=== PATIENT | male | born 1950 | race Caucasian/White ===

== ENCOUNTER 2017-11-24 11:23 | Inpatient (IN) | payer MEDICARE ==
[~2017-11-24] VITALS: Ht 188 cm; Wt 127.0 kg
[~2017-11-24 11:23] MED LIST: NITROGLYCERIN0.4 MG; OMEPRAZOLE20 M2; OMEPRAZOLE20 M2 PO
[2017-11-24 11:27] VITALS: BP 166/95
[2017-11-24] MEDS ORDERED: CRESTOR20 MG PO (11:32)
[2017-11-24] MEDS ORDERED: MOBIC15 MG PO (11:33)
[2017-11-24] MEDS ORDERED: NORVASC10 MG PO (11:33)
[2017-11-24 12:02] LABS: ABSOLUTE EOSINOPHILS 0.1 thou/uL (0.0-0.7); ABSOLUTE LYMPHOCYTES 1.7 thou/uL (0.8-5.3); ABSOLUTE MONOCYTES 0.5 thou/uL (0.0-1.2); ABSOLUTE NEUTROPHILS 4.4 thou/uL (1.6-8.1); BASOPHILS 0.4 %; EOSINOPHILS 1.4 %; HEMATOCRIT 39.7 % (42.0-52.0); HEMOGLOBIN 13.5 gm/dL (14.0-18.0); LYMPHOCYTES 25.5 %; MCH 29.3 pg (26.0-34.0); MCHC 34.1 g/dL (28.0-37.0); MCV 86.2 fL (80.0-100.0); MONOCYTES 7.9 %; MPV 7.2 fl. (7.2-11.1); NUCLEATED RBCS 0 /100WBC; PLATELET COUNT* 201 thou/uL (150-400); POLYS 64.8 %; RBC 4.61 mil/uL (4.50-6.00); RDW-CV 15.8 % (10.5-14.5); WBC 6.9 thou/uL (4.0-11.0)
[2017-11-24 12:07] LABS: CALCIUM 8.5 mg/dL (8.5-10.1); CREATININE 0.9 mg/dL (0.6-1.3); POTASSIUM 3.9 mmol/L (3.5-5.1)
[2017-11-24 12:11] LABS: ALBUMIN 3.6 g/dL (3.4-5.0); TOTAL BILIRUBIN 0.5 mg/dL (<0.1-1.0); TOTAL PROTEIN 7.5 g/dL (6.4-8.2)
[2017-11-24 12:23] LABS: URINE BILIRUBIN NEGATIVE (Negative); URINE BLOOD 3+ (Negative); URINE CLARITY CLEAR; URINE COLOR YELLOW; URINE GLUCOSE-RANDOM NEGATIVE (Negative); URINE KETONES NEGATIVE (Negative); URINE LEUKOCYTES-REFLEX NEGATIVE (Negative); URINE NITRITE-REFLEX NEGATIVE (Negative); URINE PROTEIN TRACE (Negative); URINE SPECIFIC GRAVITY 1.025 (1.005-1.030); URINE UROBILINOGEN 0.2 E.U./dl (0.2-1.0)
[2017-11-24 12:34] LABS: SQUAMOUS 0-3 Few /LPF (0-3); URINE WBC-REFLEX 0-5 Rare /HPF (0-5)
[2017-11-24 12:35] LABS: BACTERIA-REFLEX None Seen /HPF (None Seen); CASTS None Seen /LPF (None Seen); CRYSTALS None Seen /LPF (None Seen); MUCUS 0-3 Light strn/LPF (None Seen); URINE RBC >20 Many /HPF (0-2)
--- NOTE | 2017-11-24 14:32 | EKG ---
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 : 1950 Requested By: Jared Obregon Order Number: [id number] MD: Marshall Rdz Measurements Intervals [place] Rate: 97 P: 24 [place]: 159 QRS: -2 QRSD: 96 T: 14 QT: 352 QTc: 447 Interpretive Statements Sinus rhythm Left ventricular hypertrophy Compared to ECG 09/15/2010 07:05:51 Left ventricular hypertrophy now present Electronically Signed On 11-24-2017 14:32:28 CDT by Marshall Rdz [email or web address] <ELECTRONICALLY SIGNED> By: Marshall Rdz MD, [facility] 11/24/17 1432 [id number] [id number] Marshall Rdz MD, [facility] /EPI
[2017-11-24 14:34] VITALS: BP 164/87
[2017-11-24 15:00] VITALS: BP 141/87
[2017-11-25] VITALS: BP 135/67
[2017-11-25 07:58] VITALS: BP 134/70
[2017-11-25 10:28] VITALS: BP 134/70
[2017-11-25] MEDS ORDERED: MIRALAX17 GM PO (14:37)
[2017-11-25] MEDS ORDERED: TYLENOL325 MG PO (14:39)
== END 2017-11-25 14:50 | disposition home or self-care (01) | DRG 392 ==
LOC: M.ERS 11:23 → M.TBA-ER 13:56 → M.2W 14:58
PROVIDERS: Family Medicine; ADMIT Internal Medicine
DX: K59.00 Constipation, unspecified (principal); J96.10 Chronic respiratory failure, unspecified whether with hypoxia or hypercapnia; R33.9 Retention of urine, unspecified; I10 Essential (primary) hypertension; Z96.652 Presence of left artificial knee joint; Z79.899 Other long term (current) drug therapy